=== PATIENT | male | born 1955 | race Caucasian/White ===

== ENCOUNTER → 2020-06-20 | Outpatient (CLI) | payer MEDICARE, OTHER ==
[~2020-06-20] MED LIST: KETO10 PO; OXYACE5T PO; PROM25 PO; TAMS.4ER PO
== END | disposition home or self-care (01) ==
LOC: LAB 13:25 → LAB SHORT 13:25
DX: R35.8 Other polyuria (principal)
CPT/HCPCS: 87086

== ENCOUNTER 2020-09-22 06:03 | Day surgery (SDC) | payer MEDICARE, OTHER ==
[~2020-09-22] VITALS: Ht 175.3 cm; Wt 81.7 kg
[~2020-09-22 06:03] MED LIST changes: +ASPI81CH PO; +CIPR500 PO; +SILD50TA PO; +VITAMIN D310 MC4 PO
--- NOTE | 2020-09-22 11:02 | NUR ---
09/22/20 1102 JULIAALL SAMAYOA 200 ML OF CLEAR YELLOW URINE NOTED IN [facility] DRAINAGE BAG AFTER PROCEDURE.
--- NOTE | 2020-09-22 12:29 | NUR ---
Patient up to Ambulate independently. Gait steady. Discharge instructions reviewed with patient AND FAMILY. Patient AND FAMILY verbalizes understanding. Copy given to patient to take home. Patient States Post-Procedure ride home has been arranged WITH GIVING PT RIDE. Discharged via wheelchair to private car for ride home WITH DRIVING PT HOME. ALL IV'S OUT WNL.
== END 2020-09-22 12:29 | disposition home or self-care (01) ==
LOC: ORSCMMR 06:03 → ORD 07:30 → ORSCMMR 12:29
PROVIDERS: Surgery
PROC: 0YUA4JZ Supplement Bilateral Inguinal Region with Synthetic Substitute, Percutaneous Endoscopic Approach (ICD-10-PCS; principal; 2020-09-22 07:30)
PROC: 8E0W4CZ Robotic Assisted Procedure of Trunk Region, Percutaneous Endoscopic Approach (ICD-10-PCS; principal; 2020-09-22 07:30)
DX: K40.20 Bilateral inguinal hernia, without obstruction or gangrene, not specified as recurrent (principal); K21.9 Gastro-esophageal reflux disease without esophagitis; E03.9 Hypothyroidism, unspecified; Z79.82 Long term (current) use of aspirin; Z79.899 Other long term (current) drug therapy
CPT/HCPCS: 49650; S2900; A9270; C1781; J0690; J1100; J1885; J2250; J2370; J2405; J2704; J2710; J3010; J7120

== ENCOUNTER → 2021-08-14 | Outpatient (CLI) | payer MEDICARE, OTHER | END | disposition home or self-care (01) | LOC: LAB SHORT 08:14 → PLD 08:14 | DX: L82.1 Other seborrheic keratosis (principal) | CPT/HCPCS: 88305 ==

== ENCOUNTER → 2021-10-25 | Outpatient (CLI) | payer MEDICARE, OTHER ==
[~2021-10-25] MED LIST changes: +AMOCLA500; +Vitamin C100 M1
== END | disposition home or self-care (01) ==
LOC: LAB SHORT 11:00
DX: R82.90 Unspecified abnormal findings in urine (principal); R35.0 Frequency of micturition
CPT/HCPCS: 87086; 87147

== ENCOUNTER 2021-10-31 07:19 | Day surgery (SDC) | payer MEDICARE, OTHER ==
[~2021-10-31] VITALS: Ht 175.3 cm; Wt 79.0 kg
[~2021-10-31 07:19] MED LIST changes: -AMOCLA500; -Vitamin C100 M1
[2021-10-31] MEDS ORDERED: AMOCLA500 (07:34)
[2021-10-31] MEDS ORDERED: Vitamin C100 M1 (07:34)
--- NOTE | 2021-10-31 08:02 | NUR ---
10/31/21 0802 RAEANN ALONZO 2 ATTEMPTS AT IV. FIRST ATTEMPT BY MA IN R HAND INFILTRATED. SECOND ATTEMPT BY MA IN R FOREARM SUCCESSFUL.
== END 2021-10-31 09:23 | disposition home or self-care (01) ==
LOC: ORSCSDS 07:19
PROVIDERS: Surgery
PROC: 0DBH8ZX Excision of Cecum, Via Natural or Artificial Opening Endoscopic, Diagnostic (ICD-10-PCS; principal; 2021-10-31 08:30)
DX: Z12.11 Encounter for screening for malignant neoplasm of colon (principal); D12.0 Benign neoplasm of cecum; K21.9 Gastro-esophageal reflux disease without esophagitis; E03.9 Hypothyroidism, unspecified; Z87.891 Personal history of nicotine dependence; Z79.82 Long term (current) use of aspirin; Z79.899 Other long term (current) drug therapy
CPT/HCPCS: 88305; J2704; J7120